=== PATIENT | male | born 1995 ===

== ENCOUNTER 2025-04-28 17:52 | Emergency (ER) | payer SELFPAY ==
--- OUTSIDE RECORDS SUMMARY | 2025-04-25 15:06 | XMS_ITS | Encounter Summary ---
Author Organization [facility] Address [address] [place] [address] Care Team Providers Care Skin Pass Operator Name Role Phone Physician, No Pcp Primary Care Provider Unavaila ble Reason for Referral * Consultation (Routine) - Pending Review Specialty Diagnoses / Procedures Referred By Castillo faulkner Referred To Contact Gastroenterology Kaiden Miranda MD [address] [place] [address] Phone: tel: fax: Gastroenterology [facility] [address] [address] Phone: tel: fax: Referral ID Status Reason Start Date Expiration Date Visits Requested Visits Authorized [id number] Pending Review Specialty Services Required 04/25/2025 04/25/2026 1 1 Reason for Visit * Reason Comments Abdominal Pain Seen at [facility] x3 weeks ago & got dx w/ enterocolitis. Sts has lost over 30lbs despite eating normal, increased weakness, belly pain. Encounter Details Date Type Department Care Team (Late st Contact Info) Description 04/25/2025 3:06 PM EDT - 04/25/2025 6:17 PM EDT [facility] Emergency [address] [place] [id number] Kaiden Miranda MD [address] [place] [address] Gastric outlet obstruction (Primary Dx) Discharge Disposition: Home or Self Care Social History Tobacco Use Types Packs/Day Years Used Date Smoking Tobacco: Never Assessed Sex and Gender Information Value Date Recorded Sex Assigned at Not on file Legal Sex Male 2:42 PM EDT Gender Identity Not on file Sexual Orientation Not on file documented as of this encounter Last Filed Vital Signs Vital Sign Reading Time Taken Comments Blood Pressure 134/51 04/25/2025 2:46 PM EDT Pulse 90 04/25/2025 2:46 PM EDT Temperature 36.4 C (97.5 F) 04/25/2025 2:46 PM EDT Respiratory Rate 18 04/25/2025 2:46 PM EDT Oxygen Saturation 100% 04/25/2025 2:46 PM EDT Inhaled Oxygen Concentration - - Weight 56.7 kg (125 lb) 04/25/2025 2:46 PM EDT Height 165.1 cm (5' 5 ) 04/25/2025 2:46 PM EDT Body Mass Index 20.8 04/25/2025 2:46 PM EDT documented in this encounter Discharge Instructions * Discharge Instructions* Kaiden Miranda MD - 04/25/2025 5:57 PM EDT Follow up with the GI doctor at the attached phone number. Take the reglan as needed for symptoms. documented in this encounter Medications at Time of Discharge metoclopramide (REGLAN) 10 mg tablet Take 1 tablet (10 mg total) by mouth every 6 (six) hours for 7 days. 30 tablet 04/25/2025 05/02/2025 documented as of this encounter Ordered Prescriptions Prescription Sig Dispense Quantity Refills Last Filled Start Date End Date metoclopramide (REGLAN) 10 mg tablet Take 1 tablet (10 mg total) by mouth every 6 (six) hours for 7 days. 30 tablet 04/25/2025 05/02/2025 documented in this encounter Discharge Disposition Disposition Code Departure Means Destination Comment s Home or Self Care documented in this encounter Progress Notes * Claire Gordon RN - 04/25/2025 2:47 PM EDT Patient states that he has lower abdominal pain that has been ongoing for over a month. States thathe gets indigestion after eating food. Patient states that he overall feels weak and has been losing weight. * Kaiden Miranda MD - 04/25/2025 2:42 PM EDT HPI Chief Complaint Patient presents with Abdominal Pain Seen at [facility] x3 weeks ago & got dx w/ enterocolitis. Sts has lost over 30lbs despite eatingnormal, increased weakness, belly pain. 29-year-old male with no significant past medical history presents with lower abdominal pain ongoing for over a month, associated with indigestion after eating, progressive weakness, and unintentional weight loss exceeding 30 lbs despite normal food intake. He was evaluated at [facility] three weeks ago and diagnosed with enterocolitis. History provided by: Patient [place] Coma Scale Score: 15 Patient History No past medical history on file. No past surgical history on file. No family history on file. Social History Tobacco Use Smoking status: Not on file Smokeless tobacco: Not on file Substance Use Topics Alcohol use: Not on file Drug use: Not on file Review of Systems Review of Systems Physical Exam ED Triage Vitals [04/25/25 1446] Temp Heart Rate Resp BP 36.4 ??C (97.5 ??F) 90 18 134/51 SpO2 Temp Source Heart Rate Source Patient Position 100 % Oral Monitor Sitting BP Location FiO2 (%) Right arm -- Physical Exam Vitals and nursing note reviewed. Constitutional: Appearance: Normal appearance. HENT: Head: Normocephalic and atraumatic. Nose: Nose normal. Mouth/Throat: Mouth: Mucous membranes are moist. Eyes: Extraocular Movements: Extraocular movements intact. Conjunctiva/sclera: Conjunctivae normal. Pupils: Pupils are equal, round, and reactive to light. Cardiovascular: Rate and Rhythm: Normal rate. Pulses: Normal pulses. Pulmonary: Effort: Pulmonary effort is normal. Abdominal: General: Abdomen is flat. Palpations: Abdomen is soft. Musculoskeletal: General: Normal range of motion. Cervical back: Normal range of motion. Skin: General: Skin is warm and dry. Capillary Refill: Capillary refill takes less than 2 seconds. Neurological: General: No focal deficit present. Mental Status: He is alert. Mental status is at baseline. Psychiatric: Mood and Affect: Mood normal. Behavior: Behavior normal. ED Course & MDM Clinical Impressions as of 04/25/251833 Gastric outlet obstruction Medical Decision Making This is a 29-year-old male who appears to be otherwise healthy who was evaluated with chief complaints of weight loss over the past several months, early satiety, and intermittent abdominal pain after eating. Patient had a workup in the emergency department with a CT scan showing concerns for gastric outletobstruction. No other acute findings are appreciated today. Will place urgent referral to outpatient gastroenterology office for EGD and further management. Also sent prescription for Reglan to help with the symptoms. Patient be discharged and will be encouraged to follow-up as directed. Problems Addressed: Gastric outlet obstruction: chronic illness or injury Procedures Kaiden Miranda MD 04/25/25 1508 Kaiden Miranda MD 04/25/25 1834 documented in this encounter Plan of Treatment Scheduled Referrals Name Type Priority Associated Diagnoses Order Schedule Ambulatory referral to Gastroenterology Outpatient Referral Routine 1 Occurrences starting 04/25/2025 until 04/25/2026 documented as of this encounter Procedures Procedure Name Priority Date/Time Associated Diagnosis Comments CT ABDOMEN PELVIS W CONTRAST STAT 04/25/2025 5:13 PM EDT CBC WITH AUTO DIFFERENTIAL STAT 04/25/2025 3:18 PM EDT CBC AND DIFFERENTIAL STAT 04/25/2025 3:18 PM EDT LIPASE STAT 04/25/2025 3:18 PM EDT COMPREHENSIVE METABOLIC PANEL STAT 04/25/2025 3:18 PM EDT documented in this encounter Results * CT Abdomen Pelvis w Contrast (04/25/2025 5:13 PM EDT) Anatomical Region Laterality Modality Body Computed Tomogra phy 04/25/2025 5:38 PM EDT Impressions 04/25/2025 5:38 PM EDT Possible gastric outlet obstruction. Endoscopy could be performed for further assessment, if clinically indicated. This document has been electronically signed by: Claudia Nuñez MD on 04/25/2025 17:38:49 Narrative 04/25/2025 5:38 PM EDT INDICATION: Abdominal pain, acute, nonlocalized CT abdomen and pelvis with contrast Comparison: None provided Findings: The lung bases are clear. Unremarkable gallbladder and solid organs. No urolithiasis. No pneumoperitoneum, or pneumatosis. Moderate gastric distention. Pelvic contents unremarkable. Normal appendix. The bones are intact. Procedure Note Claudia Nuñez MD - 04/25/2025 INDICATION: Abdominal pain, acute, nonlocalized CT abdomen and pelvis with contrast Comparison: None provided Findings: The lung bases are clear. Unremarkable gallbladder and solid organs. No urolithiasis. No pneumoperitoneum, or pneumatosis. Moderate gastric distention. Pelvic contents unremarkable. Normal appendix. The bones are intact. IMPRESSION: Possible gastric outlet obstruction. Endoscopy could be performed for further assessment, if clinically indicated. This document has been electronically signed by: Claudia Nuñez MD on 04/25/2025 17:38:49 Kaiden Miranda MD [facility] CT PROCEDURES Final Result * (ABNORMAL) CBC auto differential (04/25/2025 3:18 PM EDT) WBC 4.4(L) 4.8 - 10.8 K/mcL LAB HEMETOLOGY METHOD 04/25/2025 3:55 PM EDT [facility] RBC 5.60(H) 4.50 - 5.50 M/mcL LAB HEMETOLOGY METHOD 04/25/2025 3:55 PM EDT [facility] Hemoglobin 14.8 13.5 - 17.5 g/dL LAB HEMETOLOGY METHOD 04/25/2025 3:55 PM EDT [facility] Hematocrit 43.8 42.0 - 54.0 % LAB HEMETOLOGY METHOD 04/25/2025 3:55 PM EDT [facility] MCV 78.5(L) 79.0 - 98.0 FL LAB HEMETOLOGY METHOD 04/25/2025 3:55 PM EDT [facility] MCH 26.5(L) 27.0 - 32.0 pcg LAB HEMETOLOGY METHOD 04/25/2025 3:55 PM EDT [facility] MCHC 33.8 32.0 - 37.0 g/dL LAB HEMETOLOGY METHOD 04/25/2025 3:55 PM EDT [facility] RDW 11.6 11.0 - 15.0 % LAB HEMETOLOGY METHOD 04/25/2025 3:55 PM EDT [facility] Platelets 202 130 - 400 K/mcL LAB [facility] MPV 10.2 7.0 - 11.0 FL LAB HEMETOLOGY METHOD 04/25/2025 3:55 PM EDT [facility] NRBC 0.0 <1.0 % LAB HEMETOLOGY METHOD 04/25/2025 3:55 PM T [facility] NRBC Absolute 0.00 <0.10 K/mcL LAB HEMETOLOGY METHOD 04/25/2025 3:55 PM [facility] Neutrophils Relative 47.8 % LAB HEMETOLOGY METHOD 04/25/2025 3:55 PM [facility] Lymphocytes Relative 35.0 % LAB HEMETOLOGY METHOD 04/25/2025 3:55 PM EDT [facility] Monocytes Relative 12.0 % LAB [facility] Eosinophils Relative 4.5 % LAB HEMETOLOGY METHOD 04/25/2025 3:55 PM [facility] Basophils Relative 0.5 % LAB HEMETOLOGY METHOD 04/25/2025 3:55 PM EDT [facility] Immature Granulocytes Relative 0.2 % LAB HEMETOLOGY METHOD 04/25/2025 3:55 PM EDT [facility] Neutrophils Absolute 2.12 1.50 - 7.00 K/[facility] LAB HEMETOLOGY METHOD 04/25/2025 3:55 PM EDT [facility] Lymphocytes Absolute 1.55 1.00 - 5.00 K/mcL LAB HEMETOLOGY METHOD 04/25/2025 3:55 PM EDT [facility] Monocytes Absolute 0.53 0.20 - 1.00 K/[facility] LAB HEMETOLOGY METHOD 04/25/2025 3:55 PM EDT [facility] Eosinophils Absolute 0.20 0.00 - 0.50 K/mcL LAB HEMETOLOGY METHOD 04/25/2025 3:55 PM EDT [facility] Basophils Absolute 0.02 0.00 - 0.20 K/mcL LAB HEMETOLOGY METHOD 04/25/2025 3:55 PM EDT [facility] Immature Granulocytes Absolute 0.01 0.00 - 0.03 K/mcL LAB HEMETOLOGY METHOD 04/25/2025 3:55 PM EDT [facility] Blood Venous blood specimen / Unknown Venipuncture / Unknown 04/25/2025 3:18 PM EDT 04/25/2025 3:44 PM EDT us Kaiden Miranda MD LAB BLOOD ORDERABLES Final Resul t [facility]) [facility] [address] [place] [address], * Lipase (04/25/2025 3:18 PM EDT) Lipase 27 13 - 75 unit/L LAB CHEMISTRY METHOD 04/25/2025 4:23 PM EDT [facility] Blood Venous blood specimen / Unknown Venipuncture / Unknown 04/25/2025 3:18 PM EDT 04/25/2025 3:44 PM EDT us Kaiden Miranda MD LAB BLOOD ORDERABLES Final Resul t [facility] [address] [place] [address], [place] [phone] * (ABNORMAL) Comprehensive metabolic panel (04/25/2025 3:18 PM EDT) [facility] Sodium 139 133 - 145 mmol/L LAB CHEMISTRY METHOD 04/25/2025 4:23 PM EDT [facility] Potassium 4.1 3.5 - 5.5 mmol/L LAB CHEMISTRY METHOD 04/25/2025 4:23 PM [facility] Chloride 108 96 - 110 mmol/L LAB CHEMISTRY METHOD 04/25/2025 4:23 PM [facility] CO2 26 21 - 32 mmol/L LAB CHEMISTRY METHOD 04/25/2025 4:23 PM [facility] Anion Gap 5 3 - 11 LAB CHEMISTRY METHOD 04/25/2025 4:23 PM [facility] Glucose 113(H) 70 - 100 mg/dL LAB CHEMISTRY METHOD 04/25/2025 4:23 PM [facility] BUN 10 5 - 25 mg/dL LAB CHEMISTRY METHOD 04/25/2025 4:23 PM [facility] Creatinine 0.68(L) 0.70 - 1.30 mg/dL LAB CHEMISTRY METHOD 04/25/2025 4:23 PM [facility] eGFR 129 >=60 mL/min/1. 73m2 LAB CHEMISTRY METHOD 04/25/2025 4:23 PM [facility] Comment:Calculation based on the Chronic Kidney Disease Epidemiology Collaboration (CKD-EPI) equation refit without adjustment for race. BUN/Creatinine Ratio 14.7 LAB CHEMISTRY METHOD 04/25/2025 4:23 PM EDT [facility] Calcium 9.8 8.5 - 10.5 mg/dL LAB CHEMISTRY METHOD 04/25/2025 4:23 PM [facility] AST (SGOT) 38 10 - 42 unit/L LAB CHEMISTRY METHOD 04/25/2025 4:23 PM [facility] ALT (SGPT) 59 10 - 60 unit/L LAB CHEMISTRY METHOD 04/25/2025 4:23 PM EDT [facility] Alkaline Phosphatase 78 42 - 121 unit/L LAB CHEMISTRY METHOD 04/25/2025 4:23 PM T [facility] Total Protein 6.9 6.0 - 8.0 g/dL LAB CHEMISTRY METHOD 04/25/2025 4:23 PM [facility] Albumin 3.6 3.2 - 5.0 g/dL LAB CHEMISTRY METHOD 04/25/2025 4:23 PM [facility] Total Bilirubin 0.6 0.0 - 1.4 mg/dL LAB CHEMISTRY METHOD 04/25/2025 4:23 PM [facility] Blood Venous blood specimen / Unknown Venipuncture / Unknown 04/25/2025 3:18 PM EDT 04/25/2025 3:44 PM EDT us Kaiden Miranda MD LAB BLOOD ORDERABLES Final Resul t [facility] [address] [place] [address], documented in this encounter Visit Diagnoses Diagnosis Gastric outlet obstruction- Primary Acquired hypertrophic pyloric stenosis documented in this encounter Administered Medications Inactive Administered Medications - up to 3 most recent administrations Medication Order MAR Action Action Date Dose Rate Site iopamidoL (ISOVUE-370) 370 mg iodine /mL (76 %) injection 90 mL 90 mL, intravenous, Once in imaging, Starting on Thu04/25/25 at 1705, For 1 dose Given 04/25/2025 5:10 PM EDT 90 mL sodium chloride 0.9 % flush 10 mL 10 mL, intravenous, Once, On Thu04/25/25 at 1706, For 1 dose Given 04/25/2025 5:10 PM EDT 10 mL documented in this encounter Active and Recently Administered Medications Times are shown in EDT. Scheduled Medication Order 04/23/2025 04/24/2025 04/25/2025 iopamidoL (ISOVUE-370) 370 mg iodine /mL (76 %) injection 90 mL (COMPLETED) 90 mL, intravenous, Once in imaging, Starting on Thu04/25/25 at 1705, For 1 dose 1710 (Given - Provid er: Nasreen Rasmussen) sodium chloride 0.9 % flush 10 mL (COMPLETED) 10 mL, intravenous, Once, On Thu04/25/25 at 1706, For 1 dose 1710 (Given - Provid er: Nasreen Rasmussen) documented in this encounter Care Teams Skin Pass Operator Relationship Specialty Start Date End Date Physician, No Pcp PCP - General 04/25/25 documented as of this encounter
--- NOTE | ~2025-04-28 | CT_ITS ---
CLINICAL HISTORY: known agstric outlet obstruction CT abdomen and pelvis with contrast Comparison: No prior studies of any type Findings: Lung bases clear. No acute bony abnormalities. Liver and spleen within normal limits. Pancreas and adrenal glands unremarkable. Gallbladder partially contracted, grossly unremarkable. No significant focal renal abnormalities. No renal stones or hydronephrosis. Abdominal aorta is normal in caliber. No free fluid or adenopathy in the pelvis. No diverticulitis. Appendix unremarkable. Impression: No acute process This document has been electronically signed by: Tony Samuels MD on 04/28/2025 21:33:25
[2025-04-28 18:02] VITALS: BP 178/74; PULSE 99; RESP 18; TEMP 36.8; O2SAT 99; BMI 20.1
--- NOTE | 2025-04-28 18:03 | ED_ITS ---
HPI - General Adult General Chief complaint: Abdominal Pain Stated complaint: Bowel obstruction Time Seen by Provider: 04/28/25 18:18 Source: patient Limitations: no limitations History of Present Illness ED Provider: Nisha Klein PA-C HPI narrative: 29-year-old male with a history of hemorrhoids presents with the abdominal pain x1 month. Patient has had persistent upper abdominal discomfort. Pain over upper abdomen, left greater than right, discomfort described as indigestion and ?squeezing sensation of the stomach?. Patient has had unintentional weight loss of 25 lb over the past month. Associated constipation over the past 3 days with the inability to pass flatus from below. Denies distention, nausea, vomiting or fever. Patient had a CAT scan at [facility] on March 29 indicating enterocolitis. Patient had another CAT scan at [facility] 3 days ago, indicating ?gastric outlet obstruction?, per the patient. Patient was advised to follow up with GI as an outpatient for endoscopy. The patient does not have insurance, he does not have primary care he does not have a SS#. Related Data Previous Rx's ?Medication ?Instructions ?Recorded docusate sodium 100 mg capsule 100 mg PO BID #14 caps 04/28/25 (Col-Rite) polyethylene glycol 3350 17 See Rx Instructions .Route 04/28/25 gram/dose oral powder (Miralax) .COMPLEX #238 grams sodium phosphates 19 gram-7 118 ml WI DAILY 2 days #26 6 mL 04/28/25 gram/118 mL enema (Fleet Enema) sucralfate 100 mg/mL oral 10 ml PO QID PRN indigestion #400 04/28/25 suspension (Carafate) mL Allergies Allergy/AdvReac Type Severity Reaction Status Date / Time No Known Allergies Allergy Verified 04/28/25 18:04 Review of Systems 2 Review of Systems: Yes all other systems are reviewed and are negative Constitutional: Constitutional: Denies fatigue and Denies fever(s) Cardiovascular: Cardiovascular: Denies chest pain and Denies dyspnea Respiratory: Respiratory: Denies dyspnea Gastrointestinal: Gastrointestinal: Reports abdominal pain, Reports constipation, Reports dyspepsia, Denies nausea and Denies vomiting Endocrine: Endocrine: Denies fatigue PMFSH Past Medical History Attestation statement: The following information was validated with the patient. Social History Social History Smoked in Last 30 Days: No Use of substances other than those prescribed or required for medical reasons: No Advance Directives: No Advance Directives Information Provided: No Physical Exam ED Vital Signs: Vital Signs - 24 hr 04/28/25 18:02 04/28/25 19:25 04/28/25 21:00 Temperature 98.2 F 98.0 F 97.9 F Pulse Rate 99 86 84 Respiratory Rate 18 16 16 Blood Pressure 178/74 H 124/81 130/80 Pulse Oximetry 99 98 97 Oxygen Delivery Method Room Air Room Air Room Air BMI result Body Mass Index 20.1 Const Other: Alert well-appearing Orientation/consciousness: patient oriented x3 Resp Effort & Inspection: normal respiratory effort Cardio Other: Normal peripheral perfusion GI Other: Abdomen is soft, nondistended, nontender no guarding with deep palpation Skin Other: Warm dry no rash Neuro General: patient oriented x3, gait normal, no focal motor deficits and CN's II- XI intact bilaterally Psych Other: Cooperative Course Course Course Narrative: RME, this is a rapid medical exam performed by Dax Beverly please refer to primary provider for complete H&P- 29 year old male presents for evaluation of abdominal pain and weight loss for the last month. He reports that he has already been seen at [facility] and [facility]. Plan for labs, UA Reevaluation(s) Reevaluation #1: I discussed findings with the patient, that his CT scan was negative, when I viewed his CT scan, he is constipated, I can see stool in the rectum. We will send with a bowel regimen, Carafate, and I have emphasized he needs insurance, primary care, potential gastroenterology consult. Medications Administered Discontinued Medications Generic Name Dose Route Start Last Admin Trade Name Dre PRN Reason Stop Dose Admin Diatrizoate Meglum/Diatrizoate Sod 30 ml 04/28/25 20:26 04/28/25 20:26 Diatrizoate Meglumine, Sodium 30 Ml Solution PO 04/28/25 20:27 30 ml ONCE ONE Administration Famotidine 20 mg 04/28/25 18:33 04/28/25 19:04 Famotidine/Pf 20 Mg/2 Ml Vial IVPUSH 04/28/25 18:34 20 mg ONCE ONE Administration Sodium Chloride 500 mls @ 500 mls/hr 04/28/25 18:33 04/28/25 20:10 Ns IV 04/28/25 19:32 Infused .Q1H ONE Infusion Iohexol 100 ml 04/28/25 20:18 04/28/25 20:21 Iohexol 350 Mg/Ml 100 Ml Infus..Btl IV 04/28/25 20:19 85 ml ONCE ONE Administration Medical Decision Making Medical Decision Making [facility] Narrative: 29-year-old male with a history of hemorrhoids presents with the abdominal pain x1 month. Patient has had persistent upper abdominal discomfort. Pain over upper abdomen, left greater than right, discomfort described as indigestion and ?squeezing sensation of the stomach?. Patient has had unintentional weight loss of 25 lb over the past month. Associated constipation over the past 3 days with the inability to pass flatus from below. Denies distention, nausea, vomiting or fever. Patient had a CAT scan at [facility] on March 29 indicating enterocolitis. Patient had another CAT scan at [facility] 3 days ago, indicating ?gastric outlet obstruction?, per the patient. Patient was advised to follow up with GI as an outpatient for endoscopy. The patient does not have insurance, he does not have primary care he does not have a SS#. Problem: Known hemorrhoids History: Per patient I have considered the following differential diagnoses: Constipation, fecal impaction, bowel obstruction, gastric outlet obstruction, gastritis/GERD, biliary colic, cholecystitis, pancreatitis Plan: This will be the 3rd CT scan that the patient has had within the month. His abdominal exam was benign, he may simply be constipated. We will order a CT scan with oral and IV contrast. Giving famotidine and IV fluid. He has no nausea vomiting or postprandial symptoms to suggest biliary colic or cholecystitis. He has no focal left upper quadrant pain to suggest pancreatitis. Furthermore, his LFTs and lipase are completely normal. I have independently reviewed the following tests: Labs: No leukocytosis, not anemic, no electrolyte abnormality noted CT abdomen and pelvis:Findings: Lung bases clear. No acute bony abnormalities. Liver and spleen within normal limits. Pancreas and adrenal glands unremarkable. Gallbladder partially contracted, grossly unremarkable. No significant focal renal abnormalities. No renal stones or hydronephrosis. Abdominal aorta is normal in caliber. No free fluid or adenopathy in the pelvis. No diverticulitis. Appendix unremarkable. Impression: No acute process Differential Diagnosis Differential Diagnoses: The differential diagnosis associated with the presentation includes See [facility] Admission/Observation Consideration of admission/observation: Escalation of care including admission/observation considered Not applicable Lab Data MDM Lab Attestation statement: I reviewed the patient's lab results. 04/28/25 18:13 04/28/25 18:13 Labs: Lab Results 04/28/25 Range/Units 18:13 WBC 4.4 L (4.8-10.8) X10*3/uL RBC 5.52 (4.60-5.80) X10*6/uL Hgb 14.8 (14.0-18.0) g/dl Hct 42.2 (42.0-52.0) % MCV 76.4 L (80.0-98.0) fL MCH 26.8 L (27.0-33.0) pg MCHC 35.1 (31.0-36.0) g/dl RDW 11.5 (11.0-16.0) % Plt Count 204 (160-400) X10*3/uL MPV 10.2 (9.4-12.4) fL Immature Gran % (Auto) 0.0 (0.0-0.4) % Neut % (Auto) 46.1 (45-73) % Lymph % (Auto) 35.6 (20-40) % [place] % (Auto) 13.5 H (2-11) % Eos % (Auto) 4.6 H (0-4) % Baso % (Auto) 0.2 (0-2) % Lymph # (Auto) 1.6 (1.2-4.9) X10*3/uL [place] # (Auto) 0.6 (0.1-1.2) X10*3/uL Eos # (Auto) 0.2 (0.0-0.4) X10*3/uL Baso # (Auto) 0.0 (0.0-0.2) X10*3/uL Abs Immat Gran (auto) 0.00 (0.00-0.03) X10*3/uL Absolute Neuts (auto) 2.0 (2.0-8.3) x10*3/uL Absolute Nucleated RBC 0.000 (0.0-0.012) X10*3/uL Nucleated RBC % (auto) 0.0 (0.0-0.2) /100WBC Sodium 143 (135-145) mmol/L Potassium 4.0 (3.3-5.1) mmol/L Chloride 106 (96-108) mmol/L Carbon Dioxide 27 (22-29) mmol/L Anion Gap 14 (12-20) BUN 13 (9-16) mg/dL Creatinine 0.64 (0.5-1.4) mg/dL Estim Creat Clear Calc 132.2 Estimated GFR > 60 Random Glucose 118 H (60-115) mg/dL Calcium 9.6 (8.4-10.2) mg/dL Magnesium 1.7 (1.6-2.6) mg/dL Total Bilirubin 0.5 (0.0-1.0) mg/dL AST 40 H (5-37) U/L ALT 58 H (0-40) U/L Alkaline Phosphatase 73 (39-117) U/L Total Protein 6.8 (6.5-8.0) g/dL Albumin 4.1 (3.5-5.0) g/dL Lipase 23 (8-78) U/L Radiology Impression Discussion of test interpretation with radiology: I have reviewed the radiologist's reading. Discharge Plan Discharge Clinical Impression: Constipation, Indigestion Patient Disposition: Home, Self-Care Instructions: Constipation (ED), High Fiber Diet (ED), Indigestion (ED), Fleet Enema (ED) Additional Instructions: All of your screening labs were completely normal. The CT scan of the abdomen and pelvis did not reveal any acute process, you do not have gastric outlet obstruction, you do not have a bowel blockage. You are constipated. See home care instructions. Use the Colace as directed. This is a stool softener. Use the Fleet enema as directed. Use the MiraLax as directed, use it every hour until you begin having multiple large volume bowel movements. Once you have cleared your current stool burden, you need to stay on the Colace daily and the MiraLax daily , to maintain regularity. Prescriptions: New docusate sodium [Col-Rite] 100 mg capsule 100 mg PO BID Qty: 14 0RF polyethylene glycol 3350 [Miralax] 17 gram/dose powder See Rx Instructions .ROUTE .COMPLEX Qty: 238 0RF Rx Instructions: 17 g orally as directed in your discharge instructions sucralfate [Carafate] 100 mg/mL suspension 10 ml PO QID PRN (Reason: indigestion) Qty: 400 0RF Rx Instructions: swish in mouth and swallow; use after food/drink Fleet Enema 19-7 gram/118 mL enema 118 ml WI DAILY 2 Days Qty: 266 0RF Print Language: Lao
[2025-04-28 18:17] LABS: MANUAL DIFF FLAG NO
[2025-04-28 18:21] LABS: Hematocrit 42.2 % (42.0-52.0); Hemoglobin 14.8 g/dl (14.0-18.0); Imm Gran Abs Auto 0.00 X10*3/uL (0.00-0.03); Imm Gran Pct Auto 0.0 % (0.0-0.4); Lymphocytes Absolute Auto 1.6 X10*3/uL (1.2-4.9); Mean Corpuscular HGB Conc 35.1 g/dl (31.0-36.0); Mean Corpuscular Hemoglobin 26.8 pg (27.0-33.0); Mean Corpuscular Volume 76.4 fL (80.0-98.0); NRBC Abs Auto 0.000 X10*3/uL (0.0-0.012); NRBC Pct Auto 0.0 /100WBC (0.0-0.2); Platelet Count 204 X10*3/uL (160-400); Red Blood Count 5.52 X10*6/uL (4.60-5.80); White Blood Count 4.4 X10*3/uL (4.8-10.8)
--- OUTSIDE RECORDS SUMMARY | 2025-04-28 18:22 | XMS_ITS | Clinical Summary ---
Author Organization [facility] Address [address] [place] [address] Phone Care Team Providers Care Physician Assistant Surgery Name Role Phone Physician, No Pcp Primary Care Provider Unavaila ble Allergies No known active allergies Medications metoclopramide (REGLAN) 10 mg tablet Take 1 tablet (10 mg total) by mouth every 6 (six) hours for 7 days. 30 tablet 04/25/2025 Active Encounters Date Type Department Care Team Description 04/25/2025 3:06 PM EDT - 04/25/2025 6:17 PM EDT Emergency [facility] Emergency [address] [place] [address] Kaiden Miranda MD Gastric outlet obstruction (Primary Dx) Discharge Disposition: Home or Self Care from Last 3 Months Social History Tobacco Use Types Packs/Day Years Used Date Smoking Tobacco: Never Assessed Sex and Gender Information Value Date Recorded Sex Assigned at Not on file Legal Sex Male 2:42 PM EDT Gender Identity Not on file Sexual Orientation Not on file Last Filed Vital Signs Vital Sign Reading [...] Mass Index 20.8 04/25/2025 2:46 PM EDT Plan of Treatment Health Maintenance Due Date Last Done Comments DTaP,Tdap,and Td Vaccines (1 - Tdap) 2014 Hepatitis B Vaccines (1 of 3 - 19+ 3-dose series) 2014 COVID-19 Vaccine (1 - 2023-2 5 season) 2024 Depression Screening 08/31/2024 HIV Screening 04/25/2025 Hepatitis C Screening 04/25/2025 Social Influencers of Health Screening 04/25/2025 Influenza Vaccine (#1) 2025 HIB Vaccines Aged Out No longer eligi ble based on patient's age to complete this topic HPV Vaccines Aged Out No longer eligi ble based on patient's age to complete this topic Hepatitis A Vaccines Aged Out No long er eligible based on patient's age to complete this topic IPV Vaccines Aged Out No longer eligi ble based on patient's age to complete this topic MMR Vaccines Aged Out No longer eligi ble based on patient's age to complete this topic Meningococcal ACWY Vaccine Aged Out N o longer eligible based on patient's age to complete this topic Meningococcal B Vaccine Aged Out No l onger eligible based on patient's age to complete this topic Pneumococcal Vaccine: Pediat rics (0 to 5 Years) and At-Risk Patients (6 to 49 Years) Aged Out No longer eligible b ased on patient's age to complete this topic RSV Immunization Patients Un neeru 20 months Aged Out No longer eligible b ased on patient's age to complete this topic Varicella Vaccines Aged Out No longer eligible based on patient's age to complete this topic Procedures Procedure Name Priority Date/Time Associated Diagnosis Comments CT ABDOMEN PELVIS W CONTRAST STAT 04/25/2025 5:13 PM EDT CBC WITH AUTO DIFFERENTIAL STAT 04/25/2025 3:18 PM EDT LIPASE STAT 04/25/2025 3:18 PM EDT COMPREHENSIVE METABOLIC PANEL STAT 04/25/2025 3:18 PM EDT CBC AND DIFFERENTIAL STAT 04/25/2025 3:18 PM EDT from Last 3 Months Results * CT Abdomen Pelvis w Contrast [...] MD on 04/25/2025 17:38:49 Kaiden Miranda MD IM CT PROCEDURES Final Result * (ABNORMAL) CBC auto differential (04/25/2025 3:18 PM EDT) WBC 4.4(L) 4.8 - 10.8 K/mcL LAB HEMETOLOGY METHOD 04/25/2025 3:55 PM EDT [facility] RBC 5.60(H) 4.50 - 5.50 M/mcL LAB HEMETOLOGY METHOD 04/25/2025 3:55 PM EDT [facility] Hemoglobin 14.8 13.5 - 17.5 g/dL LAB HEMETOLOGY METHOD 04/25/2025 3:55 PM EDT [facility] Hematocrit 43.8 42.0 - 54.0 % LAB [facility] MCV 78.5(L) 79.0 - 98.0 FL LAB HEMETOLOGY METHOD 04/25/2025 3:55 PM EDT [facility] MCH 26.5(L) 27.0 - 32.0 pcg LAB HEMETOLOGY METHOD [facility]25[facility]25 [facility] MCHC 33.8 32.0 - 37.0 g/dL LAB HEMETOLOGY METHOD 04/25/2025 3:55 PM EDT [facility] RDW 11.6 11.0 - 15.0 % LAB HEMETOLOGY METHOD 04/25/2025 3:55 PM EDT [facility] Platelets 202 130 - 400 K/mcL LAB HEMETOLOGY METHOD 04/25[facility]2025 3[facility] MPV 10.2 7.0 - 11.0 FL LAB HEMETOLOGY METHOD 04/25/2025 3:55 PM EDT [facility] NRBC 0.0 <1.0 % LAB HEMETOLOGY METHOD 04/25/2025 3:55 PM EDT [facility] NRBC Absolute 0.00 <0.10 K/mcL LAB HEMETOLOGY METHOD [facility]/25[facility]2025 [facility] Neutrophils Relative 47.8 % LAB HEMETOLOGY METHOD 04/25/2025 3:55 PM EDT [facility] Lymphocytes Relative 35.0 % LAB HEMETOLOGY METHOD 04/25/2025 3:55 PM EDT [facility] Monocytes Relative 12.0 % LAB HEMETOLOGY METHOD 04/25/2025 3:55 PM EDT [facility] Eosinophils Relative 4.5 % LAB HEMETOLOGY METHOD 04/25/2025 3:55 PM EDT [facility] Basophils Relative 0.5 % LAB HEMETOLOGY METHOD 04/25/2025 3:55 PM EDT [facility] Immature Granulocytes Relative 0.2 % LAB HEMETOLOGY METHOD 04/25/2025 3:55 PM EDT [facility] Neutrophils Absolute 2.12 1.50 - 7.00 K/mcL LAB HEMETOLOGY METHOD 04/25/2025 3:55 PM EDT [facility] Lymphocytes Absolute 1.55 1.00 - 5.00 K/mcL LAB HEMETOLOGY METHOD 04/25/2025 3:55 PM EDT [facility] Monocytes Absolute 0.53 0.20 - 1.00 K/mcL LAB HEMETOLOGY METHOD 04/25/2025 3:55 PM EDT [facility] Eosinophils Absolute 0.20 0.00 - 0.50 K/mcL LAB HEMETOLOGY METHOD 04/25/2025 3:55 PM EDT [facility] Basophils Absolute 0.02 0.00 - 0.20 K/mcL LAB HEMETOLOGY METHOD 04/25/2025 3:55 PM EDT [facility] Immature Granulocytes Absolute 0.01 0.00 - 0.03 K/mcL LAB HEMETOLOGY METHOD 04/25/2025 3:55 PM EDT [facility] Blood Venous blood specimen / Unknown Venipuncture / Unknown 04/25/2025 3:18 PM EDT 04/25/2025 3:44 PM EDT us Kaiden Miranda MD LAB BLOOD ORDERABLES Final Resul t [facility] [address] [place] [address], [place] [phone] * Lipase (04/25/2025 3:18 PM EDT) [facility] Lipase 27 13 - 75 unit/L LAB CHEMISTRY METHOD 04/25/2025 4:23 PM EDT [facility] Blood Venous blood specimen / Unknown Venipuncture / Unknown 04/25/2025 3:18 PM EDT 04/25/2025 3:44 PM EDT us Kaiden Miranda MD LAB BLOOD ORDERABLES Final Resul t [facility] [address] [place] [address], [place] [phone] * (ABNORMAL) Comprehensive metabolic panel (04/25/2025 3:18 PM EDT) [facility] Sodium 139 133 - 145 mmol/L LAB CHEMISTRY METHOD 04/25/2025 4:23 PM EDT [facility] Potassium 4.1 3.5 - 5.5 mmol/L LAB CHEMISTRY METHOD 04/25/2025 4:23 PM [facility] Chloride 108 96 - 110 mmol/L LAB CHEMISTRY METHOD 04/25/2025 4:23 PM [facility] CO2 26 21 - 32 mmol/L LAB CHEMISTRY METHOD 04/25/2025 4:23 PM [facility] Anion Gap 5 3 - 11 LAB CHEMISTRY METHOD 04/25/2025 4:23 PM [facility] Glucose 113(H) 70 - 100 mg/dL LAB CHEMISTRY METHOD 04/25/2025 4:23 PM [facility] BUN 10 5 - 25 mg/dL LAB CHEMISTRY METHOD 04/25/2025 4:23 PM [facility] Creatinine 0.68(L) 0.70 - 1.30 mg/dL LAB CHEMISTRY METHOD 04/25/2025 4:23 PM [facility] eGFR 129 >=60 mL/min/1. 73m2 LAB CHEMISTRY METHOD 04/25/2025 4:23 PM [facility] Comment:Calculation based on the Chronic Kidney Disease Epidemiology Collaboration (CKD-EPI) equation refit without adjustment for race. BUN/Creatinine Ratio 14.7 LAB CHEMISTRY METHOD 04/25/2025 4:23 PM [facility] Calcium 9.8 8.5 - 10.5 mg/dL LAB CHEMISTRY METHOD 04/25/2025 4:23 PM [facility] AST (SGOT) 38 10 - 42 unit/L LAB CHEMISTRY METHOD 04/25/2025 4:23 PM [facility] ALT (SGPT) 59 10 - 60 unit/L LAB CHEMISTRY METHOD 04/25/2025 4:23 PM [facility] Alkaline Phosphatase 78 42 - 121 unit/L LAB CHEMISTRY METHOD 04/25/2025 4:23 PM [facility] Total Protein 6.9 6.0 - 8.0 g/dL LAB CHEMISTRY METHOD 04/25/2025 4:23 PM [facility] Albumin 3.6 3.2 - 5.0 g/dL LAB CHEMISTRY METHOD 04/25/2025 4:23 PM [facility] Total Bilirubin 0.6 0.0 - 1.4 mg/dL LAB CHEMISTRY METHOD 04/25/2025 4:23 PM [facility] Blood Venous blood specimen / Unknown Venipuncture / Unknown 04/25/2025 3:18 PM EDT 04/25/2025 3:44 PM EDT us Kaiden Miranda MD LAB BLOOD ORDERABLES Final Resul t [facility] [address] [place] [address], [place] [phone] from Last 3 Months Insurance [facility] MEDICAID ADVANTAGE Care Teams Physician Assistant Surgery Relationship Specialty Start Date End Date Physician, No Pcp PCP - General 04/25/25
[2025-04-28 18:34] LABS: Alanine Aminotransferase 58 U/L (0-40); Albumin Level 4.1 g/dL (3.5-5.0); Alkaline Phosphatase 73 U/L (39-117); Anion Gap 14 (12-20); Aspartate Amino Transferase 40 U/L (5-37); Blood Urea Nitrogen 13 mg/dL (9-16); Calcium 9.6 mg/dL (8.4-10.2); Carbon Dioxide 27 mmol/L (22-29); Chloride 106 mmol/L (96-108); Creatinine Clr Calc Pharmacy 132.2; Estimated Glomerular Filt Rate > 60; Lipase 23 U/L (8-78); Potassium 4.0 mmol/L (3.3-5.1); Sodium 143 mmol/L (135-145); Total Protein 6.8 g/dL (6.5-8.0)
[2025-04-28 18:45] LABS: Magnesium 1.7 mg/dL (1.6-2.6)
--- NOTE | 2025-04-28 19:23 | PC.NURSE ---
this RN assumed care of this pt @1900, the pt currently resting in stretcher, NS running, pt appears to be in no apparent distress
[2025-04-28 19:25] VITALS: BP 124/81; PULSE 86; RESP 16; TEMP 36.7; O2SAT 98
[2025-04-28] MEDS: iohexoL 350 MG/ML 100 ML INFUS..BTL IV (20:21)
[2025-04-28 21:00] VITALS: BP 130/80; PULSE 84; RESP 16; TEMP 36.6; O2SAT 97
[2025-04-28 22:00] VITALS: BP 113/68; PULSE 81; RESP 16; TEMP 36.6; O2SAT 97
[2025-04-28 22:45] VITALS: BP 113/68; PULSE 81; RESP 16; TEMP 36.6; O2SAT 97
== END 2025-04-28 22:45 | disposition home or self-care (01) ==
PROVIDERS: Physician Assistant; Physician Assistant Medical; Emergency Provider Emergency Medicine
DX: K59.00 Constipation, unspecified (principal); R10.9 Unspecified abdominal pain; K30 Functional dyspepsia
CPT/HCPCS: 36415; 74177; 80053; 83690; 83735; 85025; 96361; 96374; 99284; 99285; J1308; Q9967

== ENCOUNTER → 2025-04-28 18:33 | Outpatient (BNV) | payer SELFPAY | PROVIDERS: Emergency Provider Emergency Medicine; Visit Provider Radiology Diagnostic Radiology | DX: K31.1 Adult hypertrophic pyloric stenosis (principal) | CPT/HCPCS: 74177 ==